=== PATIENT | female | born 1965 | race Hispanic/Latino ===

== ENCOUNTER 2022-03-01 18:45 | Emergency (ER) | payer OTHER, SELFPAY ==
[2022-03-01] MEDS ORDERED: Dexamethasone 10 MG/ML VIAL ONE (21:22)
[2022-03-01] MEDS ORDERED: Ventolin HFA Inhaler 60 PUFF INHALER ONE (21:23)
== END 2022-03-01 23:06 | disposition home or self-care (01) ==
LOC: CSHERS 18:45
DX: U07.1 COVID-19 (principal); J98.01 Acute bronchospasm; F17.210 Nicotine dependence, cigarettes, uncomplicated
CPT/HCPCS: 71045; 93005; J1100